=== PATIENT | female | born 1950 | race Caucasian/White ===

== ENCOUNTER 2023-08-16 11:55 | Emergency (ER) | payer MEDICARE, OTHER ==
[~2023-08-16] VITALS: Ht 162.6 cm; Wt 62.6 kg
[2023-08-16 11:56] VITALS: BP 138/71; TEMP 98.7
[2023-08-16 12:00] VITALS: O2SAT 98
[2023-08-16] MEDS ORDERED: predniSONE 20 MG TABLET ONE (12:52)
[2023-08-16] MEDS ORDERED: PRED50TA PO (13:00)
[2023-08-16] MEDS ORDERED: predniSONE 50 MG TABLET PO ONE (13:00)
== END 2023-08-16 13:12 | disposition home or self-care (01) ==
LOC: ER 12:05
DX: R21 Rash and other nonspecific skin eruption (principal)
CPT/HCPCS: 99283; J7512